=== PATIENT | female | born 1940 | race Hispanic/Latino ===

== ENCOUNTER 2019-06-06 03:42 | Inpatient (IN) | payer MEDICARE, OTHER ==
[2019-06-06] MEDS ORDERED: Dextrose 5 % And 0.9 % NaCl 1,000 ML IV SCH (04:45)
[2019-06-06 04:47] LABS: Actual Bicarbonate (HCO3a) 2.8 mEq/L (22-28); Analyzer IN Cardio ER; Base Excess (BEa) -27.2 mEq/L (-2.0 to +3.0); Calcium, Ionized 1.03 mmol/L (1.12-1.30); Carboxyhemoglobin (COHb) 0.3 gm% (0.0-3.0); Hemoglobin (Hb) 7.7 g/dL (12.0-16.0); O2 Tension (PaO2) 265.4 mmHg (> 70.0)
[2019-06-06 04:52] LABS: CO2 Tension 13.2 mmHg (35.0-45.0); Puncture Site LRA; pH, Arterial 6.95 (7.35-7.45)
[2019-06-06] MEDS ORDERED: Rocuronium Bromide 10 MG/ML (10ML VIAL) ONE (05:03)
--- NOTE | 2019-06-06 05:13 | PDOC.EVN ---
Event Note - Event Note Event Note: [id number]
[2019-06-06] MEDS ORDERED: Ketamine 50 MG/ML (10ML VIAL) ONE (05:28)
[2019-06-06] MEDS ORDERED: Sodium Bicarb 50 MEQ/50 ML VIAL ONE (05:34)
[2019-06-06] MEDS ORDERED: Sodium Bicarbonate 140 MEQ in Dextrose 5% in Water 1,000 ML IV SCH (05:45)
[2019-06-06] MEDS ORDERED: Norepinephrine 4 MG/4 ML VIAL ONE (06:21)
[2019-06-06 07:08] LABS: Mean Corpuscular HGB CONC 30.8 g/dL (32.0-36.0); Mean Corpuscular Hemoglobin 33.2 pg (27.0-31.0); Mean Platelet Volume 6.5 fL (7.4-10.4); Platelet Count 279 thou/uL (130-400); RBC Distribution Width 14.1 % (11.5-14.5); Red Blood Cell (RBC) Count 1.82 mill/uL (4.20-5.40); White Blood Cell (WBC) Count 21.6 thou/uL (4.8-10.8)
--- NOTE | 2019-06-06 07:13 | RAD ---
Chest AP view INDICATION: Emergency examination for chest pain COMPARISON: June 06, 2019 at 5:04 AM FINDINGS: Lungs:Hyperinflated but clear. Left costophrenic angle is excluded. Cardiac silhouette:New left IJ central venous catheter projecting in the region of the cavoatrial shahla ction. Gastric catheter and ET tube are unchanged. Heart size is normal. Pulmonary vasculature:Normal Pleural spaces:No pleural effusion or pneumothorax is demonstrated. Upper abdomen:No abnormality seen. Osseous structures: No acute osseous abnormality. Additional findings:None. IMPRESSION: New left IJ central venous catheter with the tip projecting in the region of the cavoatri al junction. Hyperinflation without evidence of airspace consolidation or pneumothorax. ET tube and gastric catheter unchanged.
--- NOTE | 2019-06-06 07:15 | RAD ---
Chest AP view INDICATION: Status post intubation COMPARISON: June 06, 2019 at 1:41 AM FINDINGS: Lungs:Hyperinflated but clear. Cardiac silhouette:The gastric catheter tip projects in the region of gastroesophageal junction. Michael mmend advancement. Patient is intubated. The ET tube tip is seen 6 cm above the level of brianna. Heart size is normal. Pulmonary vasculature:Normal Pleural spaces:No pleural effusion or pneumothorax is demonstrated. Upper abdomen:No abnormality seen. Osseous structures: There is diffuse osteopenia. No acute fracture or subluxation demonstrated. Additional findings:None. IMPRESSION: Hyperinflation without acute infiltrate. Intubation with gastric catheter placement. The gastric catheter tip is seen at the gastroesophageal junction. Recommend advancement.
[2019-06-06] MEDS ORDERED: Lorazepam 2 MG/ML VIAL SLOW IVP PRN (07:30)
[2019-06-06] MEDS ORDERED: fentaNYL Citrate/PF 2,000 MCG in Sodium Chloride 0.9% 60 ML IV SCH (07:30)
[2019-06-06] MEDS ORDERED: Fentanyl BOLUS 250 ML IVPB PRN (07:30)
[2019-06-06] MEDS ORDERED: Morphine 2 MG/ML SYRINGE SLOW IVP PRN (07:30)
[2019-06-06] MEDS ORDERED: Ventilator Sedation Protocol 1 EACH FS PRN (07:30)
[2019-06-06] MEDS ORDERED: Propofol 1,000 MG/100 ML VIAL IV PRN (07:30)
[2019-06-06] MEDS ORDERED: Propofol BOLUS 1,000 MG/100 ML VIAL IV PRN (07:30)
[2019-06-06] MEDS ORDERED: DISCONTINUE PREVIOUS NARCOTIC PAIN MEDICATIONS AND BENZODIAZEPINES FS SCH (07:30)
--- NOTE | 2019-06-06 07:36 | CT ---
CT OF THE ABDOMEN AND PELVIS WITHOUT IV CONTRAST INDICATION: Fever with renal stones, sepsis and UTI COMPARISON: None FINDINGS: This examination is limited for the evaluation of solid organs and vascular structures due to the lac k of intravenous contrast. ABDOMEN: Lung bases: Clear Liver: No focal lesion. Gallbladder: Distended Pancreas: Normal. Adrenal glands: Normal. Spleen: Normal. Kidneys and ureters: There are multiple small nonobstructing calculi seen within both kidneys. There is a right ureteral stent within the right renal collecting system. Proximal portion of the right ureteral stent resides in the renal pelvis and the distal stent resides within the right posterior la teral bladder. Largest nonobstructing calculus is seen within left renal pelvis measuring 1 cm. There is an additional 7 mm stone within the superior pole left kidney. Largest stone within the righ t kidney is seen within the inferior pole measuring 6 mm. There is gas present within an anterior middle calyx of the right kidney as well as within the right renal pelvis. There is gas along the rig ht ureteral stent within the right ureter. There is a 1 cm stone adjacent to the distal aspect of the right renal stent. There is a 5 mm stone adjacent to the distal right ureteral stent. Vasculature: There are severe vascular calcifications seen involving the visualized vasculature. Lymph nodes:No lymphadenopathy. Free fluid in abdomen:There is mild free fluid in the abdomen and pelvis. PELVIS: Small and large bowel: The stomach is prominently distended with fluid and gas. The small bowel appea rs to be of normal caliber. The colon is largely decompressed. Appendix:Not definitely seen Bladder: There is a Gross catheter within a decompressed bladder. There is suggestion of wall thicken ing involving the bladder. There is intraluminal gas within the bladder. Rectal and perirectal soft tissues:There is suggested wall thickening involving the mid to lower rect um nodule which is likely related to some underdistention. Reproductive structures: Not visible Free fluid in pelvis: Mild free fluid Lymphadenopathy pelvis: No lymphadenopathy is evident. Osseous structures: There is diffuse osteopenia. There is scattered degenerative and osteoarthritic c hange. There are age-indeterminate moderate wedge compression fractures of L3 and L4. There is soft tissue gas overlying the right greater trochanter suspicious for decubitus ulcer. Soft tissues:There is diffuse moderate to prominent anasarca. IMPRESSION: 1. Right-sided ureteral stent projects in the expected position. There are 2 large stones seen within the distal right ureter. There is gas within the right renal collecting system and bladder. Findings may reflect sequela of recent instrumentation. Recommend correlation with patient's surgical history. There is bilateral nephrolithiasis. The bladder is decompressed with a Gross catheter; however, there is some suggestion of bladder wall thickening. A component of cystitis is suspected. 2. Hydropic gallbladder. 3. Prominent distention of the stomach with fluid and gas may reflect a component of gastroparesis. 4. Right greater trochanter decubitus ulcer. 5. Age indeterminate moderate wedge compression fractures of L3 and L4 6. Moderate to prominent anasarca
[2019-06-06 07:37] LABS: ALT (SGPT) Less than 7 U/L (8-55); AST (SGOT) 30 U/L (5-34); Albumin 1.5 g/dL (3.4-4.8); Alkaline Phosphatase 58 U/L (40-110); BUN (Urea Nitrogen) 60 mg/dL (9.8-20.1); Band 22 % (5-11); Bilirubin, Total 0.2 mg/dL (0.2-1.2); Burr Cells MARKED = >16 cells (100X) (0-1/hpf); Calc. Creatinine Clearance 0 mL/min (70-130); Chloride 112 mmol/L (98-107); Estimated GFR-MDRD 23; Globulin 2.1 g/dL (2.4-3.5); Glucose 287 mg/dL (83-110); Hypochromia SLIGHT = 6-15 cells (100X) (0-5/hpf); MDiff Complete? YES; Metamyelocyte 2 % (0-0); Monocytes 2 % (0-10); Neutrophil 74 % (42-75); Platelet Morphology Comment Appears Adequate; Polychromasia SLIGHT = 2-3 cells (100X) (0-2/hpf); Potassium 3.7 mmol/L (3.5-5.1); Protein, Total 3.6 g/dL (6.0-8.3); Reflex for Review?? NO; Schistocytes SLIGHT = 2-5 cells (100X) (0-1/hpf); Sodium 140 mmol/L (136-145)
[2019-06-06 07:54] LABS: Calcium 5.4 mg/dL (7.8-10.44); Carbon Dioxide Less than 8 mmol/L (23-31)
[2019-06-06] MEDS ORDERED: Calcium Gluconate 9.2 MEQ in Sodium Chloride 0.9% 100 ML IVPB SCH (07:56)
[2019-06-06 08:36] LABS: Actual Bicarbonate (HCO3a) 3.5 mEq/L (22-28); Base Excess (BEa) -24.4 mEq/L (-2.0 to +3.0); Calcium, Ionized 0.94 mmol/L (1.12-1.30); Carboxyhemoglobin (COHb) 0.5 gm% (0.0-3.0); Hemoglobin (Hb) 8.6 g/dL (12.0-16.0); O2 Tension (PaO2) 334.3 mmHg (> 70.0); Potassium - ABG Lab 3.96 mmol/L (3.70-5.30)
[2019-06-06 08:41] LABS: CO2 Tension 12.4 mmHg (35.0-45.0); Puncture Site RRA; pH, Arterial 7.07 (7.35-7.45)
[2019-06-06 08:55] LABS: Lactic Acid 15.5 mmol/L (0.5-2.2)
[2019-06-06] MEDS ORDERED: Cefepime 1 GM in Sodium Chloride 0.9% 100 ML IVPB SCH (09:15)
[2019-06-06] MEDS: Cefepime 1 GM in Sodium Chloride 0.9% 100 ML IVPB SCH ×2 (10:05→17:29)
--- NOTE | 2019-06-06 10:06 | CON ---
DATE OF CONSULTATION: 06/06/2019 CONSULTING PHYSICIAN: Lele Starks MD Following encompassed 45 minutes of Critical Care time. HISTORY OF PRESENT ILLNESS: The patient is a 78-year-old female, resident of a group home in [place]. She was found unresponsive in her bed this morning. She was initially taken to the [facility] Emergency Room and then transferred over here. This patient has been intubated. She was hypotensive on admission. She was found to be in an extreme metabolic acidosis. It is thought that she is in urosepsis from a urinary tract infection. The history I have is obtained from speaking with the physicians involved and by reading the notes in the chart. PAST MEDICAL HISTORY: 1. Diabetes mellitus, type 2. 2. Sepsis syndrome. 3. Hyperlipidemia. 4. Protein-calorie malnutrition. 5. Hypertension. 6. Hyperosmolar hyponatremia. 7. Decubitus ulcers. 8. Osteoarthritis. 9. Acute renal failure. 10. Ureteral calculi. 11. Cystitis. 12. Neurogenic bladder. 13. Contractures. PAST SURGICAL HISTORY: Not known at this time. SOCIAL HISTORY: Apparently, used to smoke cigarettes. I am not sure about alcohol consumption. MEDICATIONS: Medications prior to admission: 1. Loperamide 2 mg as needed. 2. MiraLAX 17 g daily as needed. 3. [place] 7.5/325 one every 6 hours as needed. 4. Protonix 40 mg daily. 5. Ropinirole 1 mg, 3 tablets at night. 6. Simvastatin 20 mg daily. 7. Tramadol 50 mg every 6 hours as needed. 8. Zofran as needed. 9. Zyrtec 10 mg daily. 10. Acetaminophen 500 mg as needed. 11. Alendronate 70 mg daily. 12. Aspirin 81 mg daily. 13. Benzonatate 200 mg t.i.d. 14. Escitalopram 10 mg daily. 15. Iron sulfate 325 mg daily. 16. Lisinopril 20 mg daily. ALLERGIES: NONE LISTED. REVIEW OF SYSTEMS: Cannot be obtained as the patient is currently on mechanical ventilation. PHYSICAL EXAMINATION: VITAL SIGNS: Pulse 78, blood pressure 85/47, temperature 92.1, respiratory rate 24, mechanical ventilation. GENERAL: This is a cachectic female, who appears extremely malnourished and unkept. She has bruising all over her body. She has decubitus ulcers at pressure points throughout her body. HEENT: Pupils are sluggishly reactive. Sclerae are anicteric. Oropharynx is dry. NECK: No adenopathy or JVD. LUNGS: Coarse rhonchi bilaterally. CARDIOVASCULAR: S1 and S2. Regular without audible murmur. ABDOMEN: Soft. No hepatosplenomegaly. EXTREMITIES: Severe muscle wasting. Contractures. No cyanosis. Of note, this patient has a Gross catheter placed in the ER. She has a left IJ central line in place, and she has a 7.[address]. LABORATORY DATA: White blood cell count 24.0, hematocrit 27.2, platelet count 335 with 75% neutrophils, 9% bands. A pH is 6.95, pCO2 of 13, pO2 of 265. That blood gas was obtained on 100% nonrebreather. Sodium 140, potassium 5.2, chloride 104, CO2 less than 8, BUN 75, creatinine 2.6, glucose 76. Lactate 15.7. AST 19, ALT less than 7, total protein 4.6, albumin 1.9. Urinalysis showed severe proteinuria with greater than 50 white blood cells per field, 11 to 20 red blood cells per field, and 4+ bacteria. Her chest x-ray demonstrates hyperinflated lung lynn. The endotracheal tube is about 6 cm above the brianna. She has a left IJ coursing into the superior vena cava that is in adequate position. I do not appreciate any type of pneumothorax. ASSESSMENT: 1. Septic shock from urosepsis. 2. Severe metabolic acidosis secondary to septic shock. 3. Severe protein-calorie malnutrition with evidence of neglect. 4. Acute respiratory failure requiring mechanical ventilation. 5. Hypoglycemia. PLAN: This patient is deathly ill and has a very poor chance of survival. We will continue mechanical ventilation and support her with antibiotics, vasopressors, and IV fluids. Depending on the CT abdomen results, she may need Urology involvement as she has had issues with stones in the past. Job ID: [id number]
[2019-06-06] MEDS: Dextrose 5% in Water 1,000 ML IV SCH ×3 (10:07→18:31)
[2019-06-06] MEDS: Pantoprazole 40 MG VIAL IVP SCH (10:08)
[2019-06-06] MEDS: Sodium Chloride 0.9% 1,000 ML IV SCH ×2 (10:08→10:09)
[2019-06-06] MEDS ORDERED: Acetaminophen 650 MG Suppository PR PRN (11:00)
[2019-06-06] MEDS ORDERED: Acetaminophen 325 MG TAB PO PRN (11:00)
[2019-06-06] MEDS ORDERED: Bisacodyl 10 MG SUPP PR PRN (11:00)
[2019-06-06] MEDS ORDERED: Calcium Carbonate 500 MG ChewTAB PO PRN (11:00)
[2019-06-06] MEDS ORDERED: Dextrose 50% Abboject 50 ML SYRINGE SLOW IVP PRN (11:03)
[2019-06-06] MEDS ORDERED: Insulin Regular 300 UNITS/3 ML VIAL SC PRN (11:03)
[2019-06-06] MEDS ORDERED: Dextrose 5% in Water 1,000 ML IV PRN (11:03)
[2019-06-06] MEDS ORDERED: Acetaminophen 650 MG/20.3 ML UDCUP PO PRN (11:03)
[2019-06-06] MEDS ORDERED: SYSTANE 3.5 GM TUBE EA EYE PRN (11:03)
[2019-06-06] MEDS: Insulin Regular 300 UNITS/3 ML VIAL SC PRN ×2 (12:28→16:43)
[2019-06-06] MEDS ORDERED: NPH, Human Insulin Isophane 300 UNIT/3 ML VIAL SC SCH (13:00)
--- NOTE | 2019-06-06 15:24 | PDOC.PALCO ---
Palliative Care Consult - Consult Details Requesting Physician: Dr Altamirano Reason for Consult: goals of care, family support Family Members Present: Grandson of patient, Kannan - Pertinent HPI 78 year female who resides currently at a residential in [place] for management o fchronic wounds. Patient was found to have an altered mental status at aprox midnight 12/ and was transported to [place] emergency room for evaluation, transfered to [facility] for a higher level of care R/t septic chock from a suspected UTI. Family reports known renal calculi. Patient was intubated secondary to altered ABG's. Admitted for medical management. In conversation with patient grandson he and his sister are MPOA as his father is incarcerated. Kannan, grandson, confirms in the past his grandmother states she did not want to "be kept alive on machines". Grandson states she has been bedbounds for a lengthy period of time secondary to S/P CVA, was at home prior to recent need for care at [facility]. - Pertinent PMH DM II, Sepsis, HDL, HTN, chronic wounds/ulcers, neurogenic bladder, S/P CVA, chronic UTI /kidney failure, ureteral calculus, anemia, - Social History Smoking Status: Former smoker Smoking: quit greater than 1 year Alcohol Use: none Drug Use History: none Living Situation: residential resident - Medications MAR Reviewed: Yes - Allergies Allergies/Adverse Reactions: Allergies Allergy/AdvReac Type Severity Reaction Status Date / Time No Known Drug Allergies Allergy Verified 06/06/19 12:41 - Subjective Mechanical ventilation, non responsive - ROS Non Response: due to endotracheal tube, due to mental status - Objective Vital Signs: Vital Signs - Most Recent Temp Pulse Resp BP Pulse Ox 97.9 F 109 H 25 H 96/44 L 100 06/06/19 14:31 06/06/19 14:31 06/06/19 14:31 06/06/19 14:31 06/06/19 14:31 Palliative Performance Scale: 20 - Physical Exam Constitutional: encephalitic, ill appearing HEENT: moist MMs, sclera anicteric Respiratory: labored respirations (mechanical ventilation) Cardiovascular: diminished peripheral pulses Gastrointestinal: incontinent Genitourinary: grant catheter Musculoskeletal: diffuse muscle atrophy Neurology: hemiplegia Skin: cap refill <2 seconds, fragile Deviation from normal: non responsive verbally, mechanical ventilation - Problem List (1) Palliative care encounter Code(s): Z51.5 - ENCOUNTER FOR PALLIATIVE CARE Current Visit: Yes Status: Acute (2) On mechanically assisted ventilation Code(s): Z99.11 - DEPENDENCE ON RESPIRATOR [VENTILATOR] STATUS Current Visit: Yes Status: Acute (3) Septic shock Code(s): A41.9 - SEPSIS, UNSPECIFIED ORGANISM; R65.21 - SEVERE SEPSIS WITH SEPTIC SHOCK Current Visit: Yes Status: Acute (4) Protein-calorie malnutrition Code(s): E46 - UNSPECIFIED PROTEIN-CALORIE MALNUTRITION Current Visit: Yes Status: Acute (5) Metabolic acidosis Code(s): E87.2 - ACIDOSIS Current Visit: Yes Status: Acute - Plan/Recommendations Plan: Initial Palliative Care consult with patient grandson, states his sister is also decision maker and she has gone home to rest. Grandson "Kannan" states that is is he and his sister who care for his grandmother as his father ( patient son) is incarcerated. Discussed gravity of patient illness and poor prognosis. *Attempting to arrange a family meeting for 06/07 to discuss goals of care and resuscitation status. *Continue with theraputic listening and supportive care *Education in relation to disease progression and complexity of chronic conditions [60] minutes spent on this encounter with >50% of the time in counseling and coordination of care. Thank you for this very appropriate consult.
[2019-06-06] MEDS: Norepinephrine 8 MG/0.9% NS 250 ML IVPB SCH ×2 (18:11→23:54)
[2019-06-06] MEDS: NPH, Human Insulin Isophane 300 UNIT/3 ML VIAL SC SCH (20:49)
[2019-06-06] MEDS ORDERED: Heparin 5,000 UNITS/ML VIAL SC SCH (21:00)
[2019-06-06] MEDS: Amiodarone 450 MG, Admixture Fee 1 EACH in Dextrose 5% in Water 250 ML IVPB SCH (21:19)
[2019-06-07] MEDS ORDERED: Vancomycin HCl 1 GM in Sodium Chloride 0.9% 250 ML 250 ML IVPB SCH (03:00)
[2019-06-07] MEDS: Dextrose 5% in Water 1,000 ML IV SCH (04:30)
[2019-06-07] MEDS: Amiodarone 450 MG, Admixture Fee 1 EACH in Dextrose 5% in Water 250 ML IVPB SCH ×2 (04:30→23:55)
[2019-06-07 05:27] LABS: Reticulocyte Count 1.3 % (0.5-1.5)
[2019-06-07 05:31] LABS: Band 46 % (5-11); Hemoglobin 9.7 g/dL (12.0-16.0); MDiff Complete? YES; Mean Corpuscular HGB CONC 32.7 g/dL (32.0-36.0); Mean Corpuscular Hemoglobin 33.4 pg (27.0-31.0); Mean Platelet Volume 7.2 fL (7.4-10.4); Metamyelocyte 2 % (0-0); Neutrophil 52 % (42-75); Platelet Count 205 thou/uL (130-400); Platelet Morphology Comment Appears Adequate; RBC Distribution Width 14.3 % (11.5-14.5); Red Blood Cell (RBC) Count 2.92 mill/uL (4.20-5.40); White Blood Cell (WBC) Count 31.3 thou/uL (4.8-10.8)
[2019-06-07] MEDS: Cefepime 1 GM in Sodium Chloride 0.9% 100 ML IVPB SCH (06:03)
[2019-06-07 06:12] LABS: ALT (SGPT) 19 U/L (8-55); AST (SGOT) 96 U/L (5-34); Albumin 1.8 g/dL (3.4-4.8); Alkaline Phosphatase 52 U/L (40-110); BUN (Urea Nitrogen) 61 mg/dL (9.8-20.1); Bilirubin, Total 0.3 mg/dL (0.2-1.2); Calc. Creatinine Clearance 14 mL/min (70-130); Chloride 100 mmol/L (98-107); Estimated GFR-MDRD 20; Globulin 2.6 g/dL (2.4-3.5); Glucose 103 mg/dL (83-110); Phosphorus 3.7 mg/dL (2.3-4.7); Potassium 3.1 mmol/L (3.5-5.1); Protein, Total 4.4 g/dL (6.0-8.3); Sodium 127 mmol/L (136-145)
[2019-06-07 06:15] LABS: Carbon Dioxide Less than 8 mmol/L (23-31); Lactic Acid 13.4 mmol/L (0.5-2.2); Magnesium 0.7 mg/dL (1.6-2.6)
[2019-06-07] MEDS: Vancomycin HCl 750 MG in Sodium Chloride 0.9% 250 ML 250 ML IVPB SCH (06:46)
[2019-06-07 07:01] LABS: Actual Bicarbonate (HCO3a) 4.6 mEq/L (22-28); Base Excess (BEa) -21.9 mEq/L (-2.0 to +3.0); Calcium, Ionized 0.94 mmol/L (1.12-1.30); Carboxyhemoglobin (COHb) 0.2 gm% (0.0-3.0); Hemoglobin (Hb) 10.6 g/dL (12.0-16.0); O2 Tension (PaO2) 279.4 mmHg (> 70.0); Potassium - ABG Lab 3.18 mmol/L (3.70-5.30)
[2019-06-07 07:03] LABS: CO2 Tension 13.4 mmHg (35.0-45.0); pH, Arterial 7.16 (7.35-7.45)
[2019-06-07 07:04] LABS: Puncture Site RRA
[2019-06-07] MEDS ORDERED: Potassium Chloride 40 MEQ in Sodium Chloride 0.9% 250 ML 250 ML IVPB SCH (07:30)
[2019-06-07] MEDS: Sodium Bicarb 50 MEQ/50 ML VIAL ONE (08:08)
--- NOTE | 2019-06-07 08:09 | HP ---
CHIEF COMPLAINT: Unresponsiveness. HISTORY OF PRESENT ILLNESS: Ms. Arteaga is a 78-year-old female who is being transferred from [place] [facility] after she presented there with unresponsiveness. EMG got a blood glucose of less than 10. She was given 250 mL of D10 and her glucose on arrival was 116. Systolic blood pressure was around 90. The patient also was found to be hypothermic with temperature in the mid 80s. On initial workup in the emergency room, the patient was septic with WBC count of 24,000. The patient was found to have urinary tract infection. Multiple decubitus ulcers, one of them is stage IV. The patient was transferred to our emergency room on non-rebreather. We were unable to get an oxygen saturation. Arterial blood gases being drawn right now, results are still pending at the time of this dictation. The patient is unable to give any history. Current blood pressure is 100/50. Septic workup done including blood cultures and urine cultures. The patient is being admitted to the intensive care unit for further management. PAST MEDICAL HISTORY: Significant for diabetes mellitus type 2, hyperlipidemia, malnutrition, hypertension, hyponatremia, pressure ulcers, osteoarthritis, osteoporosis, kidney failure, neurogenic bladder, chronic UTIs, contractures, and atrophy. PAST SURGICAL HISTORY: Renal stent. SOCIAL HISTORY: Former tobacco user. Currently lives in [place] [facility] [place]. FAMILY HISTORY: Reviewed and noncontributory. KNOWN ALLERGIES: Bactrim. HOME MEDICATIONS: Please see home medication reconciliation form for updated medications. REVIEW OF SYSTEMS: Unable to obtain. The patient is not responding. PHYSICAL EXAMINATION: GENERAL: The patient is unresponsive, on non-rebreather. VITAL SIGNS: Blood pressure 110/58, pulse is 86, respiratory rate is 23, latest temperature is 92.3. HEAD AND NECK: Normocephalic, atraumatic. Neck is supple. CHEST: Fair bilateral air entry. HEART: S1, S2. Regular. ABDOMEN: Soft. Bowel sounds hypoactive. NEURO: Patient is unresponsive. Unable to assess. PSYCH: Unable to assess. EXTREMITIES AND BACK: Multiple pressure decubitus ulcers, one of them is stage IV with surrounding erythema. LABORATORY DATA: WBC 24,000, hemoglobin 27.4, platelets 335. Sodium is 140, potassium 5.2, BUN is 75, creatinine is 7.6, glucose 76. ASSESSMENT AND PLAN: 1. Acute metabolic encephalopathy. 2. Severe sepsis/septic shock. 3. Acute urinary tract infection. 4. Metabolic acidosis. 5. Hypoglycemia. 6. Diabetes mellitus. 7. Multiple pressure ulcers. 8. Malnutrition, severe. 9. Hyperlipidemia. 10. Anemia of chronic disease. PLAN: 1. Admit to ICU. 2. Septic workup including blood cultures and urine cultures. 3. Continue with IV antibiotics with cefepime and vancomycin. 4. IV fluids. 5. ABG has been drawn, to follow the results. 6. Consult extractor operator helper for critical care management. 7. Reconcile home medications. 8. GI and DVT prophylaxis as appropriate. 9. The patient's condition is very critical. 10. Expected length of stay; 3 midnights or more. Job ID: [id number]
[2019-06-07] MEDS: Norepinephrine 8 MG/0.9% NS 250 ML IVPB SCH ×4 (08:10→22:01)
--- NOTE | 2019-06-07 08:10 | RAD ---
PORTABLE CHEST 1 VIEW: Date: 06/07/19 Time: 0411 hours HISTORY: Pneumonia. Chest pain. FINDINGS/IMPRESSION: Line and tube placements are unchanged in position. The heart size is normal. The lungs are expanded without lobar consolidation, pneumothoraces, or pleural effusions. There are degenerative changes in the right shoulder joint. POS: H
[2019-06-07] MEDS: Sodium Bicarbonate 140 MEQ in Dextrose 5% in Water 1,000 ML IV SCH ×2 (08:36→15:43)
[2019-06-07] MEDS: Pantoprazole 40 MG VIAL IVP SCH (08:37)
[2019-06-07] MEDS: NPH, Human Insulin Isophane 300 UNIT/3 ML VIAL SC SCH ×2 (08:37→21:18)
[2019-06-07] MEDS: Folic Acid 1 MG TAB PER TUBE SCH ×2 (08:42→21:18)
--- NOTE | 2019-06-07 08:51 | CON ---
DATE OF CONSULTATION: 06/07/2019 35 minutes of critical time. SUBJECTIVE: The patient remains intubated on mechanical ventilation. Neurologically, she will grimace to deep painful stimuli and she does withdraw her extremities some to stimuli. Regardless, she remains unresponsive to commands. She is on vasopressors and amiodarone drip. OBJECTIVE: VITAL SIGNS: Her temperature is 99.1, pulse 130, blood pressure 103/44, ranging down to 83/48. Intake since admission 6498 mL, output 316, total urine output has been about 66 mL. She overall looks in terrible shape. HEENT: Unchanged. NECK: No adenopathy or JVD. LUNGS: Coarse breath sounds. CARDIOVASCULAR: S1, S2. Tachycardic and irregular. ABDOMEN: Quiet bowel sounds. EXTREMITIES: Severe contractures. She has edema of her feet. LABORATORY DATA: White blood cell count is 31.3, hematocrit 29.8, and platelet count 205. PH of 7.16, pCO2 of 13, PO2 of 279, that is on pressure support ventilation. of 5, pressure support 10 (the patient becomes dyssynchronous with the ventilator when placed on assist-control mode). Sodium 127, potassium 3.1, chloride 100, CO2 less than 8, BUN 61, creatinine 2.3, and glucose 103. Lactate 13.4, magnesium 0.7. ASSESSMENT: 1. Acute respiratory failure requiring mechanical ventilation. 2. Probable atrial fibrillation. 3. Severe lactic acidosis, not responding to fluid resuscitation. Suspect she may have infarcted her entire bowel given this level of acidosis. PLAN: The situation is hopeless. She will not get better despite aggressive care. I would advocate DNR, withdrawal of care to hospice situation. We will discuss. Job ID: [id number]
[2019-06-07] MEDS ORDERED: Magnesium 2 GM/50 ML 2 GM in Premix Bag 1 BAG IVPB SCH (11:00)
--- NOTE | 2019-06-07 13:13 | PDOC.PALPN ---
Palliative Progress Note - Subjective Mechanical ventilation, non responsive. - Objective Vital Signs: Vital Signs - Most Recent Temp Pulse Resp BP Pulse Ox 98.4 F 136 H 23 H 104/84 100 06/07/19 12:00 06/07/19 13:10 06/07/19 12:00 06/07/19 10:56 06/07/19 07:36 - Physical Exam Constitutional: encephalitic, ill appearing HEENT: moist MMs Deviation from normal: mechanoical ventialtion, sight adventicious lung sounds on expiration upper Cardiovascular: diminished peripheral pulses, irregular Gastrointestinal: incontinent Genitourinary: grant catheter Musculoskeletal: edema present Deviation from normal: cyanotic appearance to toes Skin: fragile, friable Deviation from normal: Multiple wounds as per notes - Assessment (1) Palliative care encounter Code(s): Z51.5 - ENCOUNTER FOR PALLIATIVE CARE Current Visit: Yes Status: Acute (2) On mechanically assisted ventilation Code(s): Z99.11 - DEPENDENCE ON RESPIRATOR [VENTILATOR] STATUS Current Visit: Yes Status: Acute (3) Septic shock Code(s): A41.9 - SEPSIS, UNSPECIFIED ORGANISM; R65.21 - SEVERE SEPSIS WITH SEPTIC SHOCK Current Visit: Yes Status: Acute (4) Protein-calorie malnutrition Code(s): E46 - UNSPECIFIED PROTEIN-CALORIE MALNUTRITION Current Visit: Yes Status: Acute (5) Metabolic acidosis Code(s): E87.2 - ACIDOSIS Current Visit: Yes Status: Acute - Plan Plan: Conversation with Candy patient granddaughter. Patient is , her is home and does not answer or talk on the phone. Mr Arteaga is ill as he has throat cancer and receives nutrition via PEG. Grandson Kannan is on his way to have the grandfather give consent for Candy to be the decision maker (She as been designated in the past). Discussed with Candy patient decline today. Discussed resuscitation status and poor outcome should resuscitative measures need to be carried forth again. Family in shock, but do not want their grandmother to suffer. Will also reach out to Father Brain for spiritual support. *Kannan (grandson) to go to of Mrs Arteaga and have him call and give verbal consent for Candy to be the decision maker for care for Mrs Arteaga. *Revisit DNAR status *Revisit goals of care as family does not desire to have patient suffer. [45] minutes spent on this encounter with >50% of the time in counseling and coordination of care. - ROS Non Response: due to endotracheal tube, due to mental status
--- NOTE | 2019-06-07 23:39 | PDOC.HOSPP ---
- Subjective Encounter Date: 06/07/19 Encounter Time: 09:30 Subjective: Patient seen and examined for Septic shock. On [facility] Vent/Levophed. No overnight events - Objective Vital Signs & Weight: Vital Signs (12 hours) Temp Pulse Resp BP Pulse Ox 06/07/19 23:31 138 H 93/55 L 06/07/19 23:30 100 06/07/19 22:00 30 H 06/07/19 20:00 30 H 100 06/07/19 19:00 98.8 F 06/07/19 18:38 135 H 06/07/19 18:37 100 06/07/19 18:00 24 H 06/07/19 16:00 98.1 F 23 H 06/07/19 15:00 135 H 129/64 06/07/19 14:00 22 H 06/07/19 13:10 136 H 06/07/19 12:00 98.4 F 23 H Weight Admit Weight 107 lb Weight 107 lb 5.842 oz Most Recent Monitor Data Heart Rate from ECG 143 NIBP 115/44 NIBP BP-Mean 67 Respiration from ECG 28 SpO2 100 I&O: 06/06/19 06/07/19 06/08/19 06:59 06:59 06:59 Intake Total 6498 2991 Output Total 316 43 Balance 6182 2948 Result Diagrams: 06/07/19 05:00 06/07/19 05:00 Additional Labs: Accuchecks 06/07/19 06/07/19 06/07/19 20:54 16:03 12:10 POC Glucose 66 L 116 H 81 06/07/19 00:20 POC Glucose 95 Microbiology 06/06/19 01:38 Urine grant catheter Urine Culture - Preliminary Pseudomonas aeruginosa Gram Negative Evan#2 06/06/19 01:35 Venous blood - Right Arm Blood Culture - Preliminary Beta-hemolytic Streptococcus 06/06/19 01:20 Venous blood - Right Arm Blood Culture - Preliminary Beta-hemolytic Streptococcus Radiology Reviewed by me: Yes (CXR - unchanged) EKG Reviewed by me: Yes (Tele ) Hospitalist ROS - Review of Systems ROS unobtainable: due to mental status - Medication Medications: Active Medications Generic Name Dose Route Start Last Admin Trade Name Freq PRN Reason Stop Dose Admin Albuterol/Ipratropium 3 ml 06/06/19 10:30 06/07/19 23:30 Duoneb NEB 3 ml [id number] NATHANIEL Administration Folic Acid 1 mg 06/07/19 09:00 06/07/19 21:18 Folvite PER TUBE 1 mg BID NATHANIEL Administration Norepinephrine Bitartrate 250 mls @ 0 mls/hr 06/06/19 07:30 06/07/19 22:01 Levophed IVPB 250 mls INF NATHANIEL Administration Protocol Titrate Amiodarone HCl 450 mg/ 259 mls @ 0 mls/hr 06/06/19 20:45 06/07/19 04:30 Miscellaneous Medication 1 IVPB 259 mls each/ Dextrose/Water INF NATHANIEL Administration Protocol As Directed Vancomycin HCl 750 mg/ Sodium 250 mls @ 250 mls/hr 06/07/19 06:00 06/07/19 06 :46 Chloride IVPB 250 mls 0600 NATHANIEL Administration Sodium Bicarbonate 140 meq/ 1,140 mls @ 150 mls/hr 06/07/19 08:00 06/07/19 15 :43 Dextrose/Water IV 1,140 mls .[id number] NATHANIEL Administration Insulin Human NPH 15 unit 06/06/19 21:00 06/07/19 21:18 Humulin N SC Not Given BID NATHANIEL Insulin Human Regular 0 units 06/06/19 11:03 06/06/19 16:43 Humulin R SC 4 unit .MODERATE SLIDING SC PRN Administration Moderate Correctional Scale Morphine Sulfate 2 mg 06/06/19 07:30 06/06/19 13:45 Morphine SLOW IVP 07/06/19 07:30 2 mg Q1H PRN Administration BREAKTHROUGH PAIN/Agitation Pantoprazole Sodium 40 mg 06/06/19 09:00 06/07/19 08:37 Protonix IVP 40 mg DAILY NATHANIEL Administration - Exam General Appearance: NAD General - other findings: on Levophed Heart: RRR, no gallops Respiratory: CTAB, normal chest expansion, rales, rhonchi Gastrointestinal: soft, non-tender, non-distended, normal bowel sounds Extremities: no cyanosis, no clubbing Musculoskeletal - other findings: Neuro/Psych - cannot assess due to current mentation Hosp A/P - Plan DVT proph w/SCDs Severe Sepsis/Septic shock with Strep bacteremia/UTI (POA) Toxic Metabolic Encephalopathy Lactic acidosis Decubitus ulcer (POA) Anemia DM2 Severe PEM Other issues per H&P PLAN: s/p 1 unit PRBC on 06/06 Cont Empiric Atbx Monitor Vancomycin level Await sensitivities AM labs Sliding scale On Bicarb drip
[2019-06-08] MEDS: Sodium Bicarbonate 140 MEQ in Dextrose 5% in Water 1,000 ML IV SCH ×3 (00:28→15:33)
[2019-06-08] MEDS: Norepinephrine 8 MG/0.9% NS 250 ML IVPB SCH ×2 (03:48→15:33)
[2019-06-08 04:08] LABS: Lactic Acid 11.7 mmol/L (0.5-2.2)
[2019-06-08 04:11] LABS: ALT (SGPT) 28 U/L (8-55); AST (SGOT) 103 U/L (5-34); Albumin 1.5 g/dL (3.4-4.8); Alkaline Phosphatase 59 U/L (40-110); Anion Gap 25 mmol/L (10-20); BUN (Urea Nitrogen) 57 mg/dL (9.8-20.1); Bilirubin, Total 0.3 mg/dL (0.2-1.2); Calc. Creatinine Clearance 16 mL/min (70-130); Carbon Dioxide 14 mmol/L (23-31); Chloride 96 mmol/L (98-107); Estimated GFR-MDRD 22; Globulin 2.2 g/dL (2.4-3.5); Magnesium 1.3 mg/dL (1.6-2.6); Phosphorus 2.6 mg/dL (2.3-4.7); Potassium 3.6 mmol/L (3.5-5.1); Protein, Total 3.7 g/dL (6.0-8.3); Sodium 131 mmol/L (136-145)
[2019-06-08 04:13] LABS: Calcium 5.5 mg/dL (7.8-10.44); Glucose 11 mg/dL (83-110)
[2019-06-08] MEDS ORDERED: Dextrose 50 % In Water 50 ML SYRINGE ONE ×4 (04:14→12:42)
[2019-06-08 04:17] LABS: Band 43 % (5-11); Elliptocytes SLIGHT = 2-5 cells (100X) (0-1/hpf); Hemoglobin 9.3 g/dL (12.0-16.0); Hypochromia SLIGHT = 6-15 cells (100X) (0-5/hpf); Lymphocytes 2 % (21-51); MDiff Complete? YES; Mean Corpuscular HGB CONC 34.1 g/dL (32.0-36.0); Mean Corpuscular Hemoglobin 33.1 pg (27.0-31.0); Mean Corpuscular Volume 97.1 fL (78.0-98.0); Mean Platelet Volume 7.9 fL (7.4-10.4); Metamyelocyte 2 % (0-0); Monocytes 3 % (0-10); Myelocyte 2 % (0-0); Neutrophil 48 % (42-75); Platelet Count 123 thou/uL (130-400); Platelet Morphology Comment Appears Decreased; RBC Distribution Width 14.2 % (11.5-14.5); Red Blood Cell (RBC) Count 2.83 mill/uL (4.20-5.40); White Blood Cell (WBC) Count 33.4 thou/uL (4.8-10.8)
[2019-06-08] MEDS: Cefepime 0.5 GM, Admixture Fee 1 EACH in Sodium Chloride 0.9% 100 ML IVPB SCH (05:45)
[2019-06-08 05:56] LABS: Vancomycin, Trough 16.1 ug/mL
[2019-06-08] MEDS: Vancomycin HCl 750 MG in Sodium Chloride 0.9% 250 ML 250 ML IVPB SCH (06:33)
[2019-06-08 07:13] LABS: Actual Bicarbonate (HCO3a) 10.6 mEq/L (22-28); Base Excess (BEa) -12.6 mEq/L (-2.0 to +3.0); Calcium, Ionized 0.85 mmol/L (1.12-1.30); Carboxyhemoglobin (COHb) 0.2 gm% (0.0-3.0); Hemoglobin (Hb) 9.6 g/dL (12.0-16.0); O2 Tension (PaO2) 90.4 mmHg (> 70.0); Potassium - ABG Lab 3.29 mmol/L (3.70-5.30); pH, Arterial 7.39 (7.35-7.45)
[2019-06-08 07:18] LABS: Puncture Site RRA
[2019-06-08] MEDS: NPH, Human Insulin Isophane 300 UNIT/3 ML VIAL SC SCH ×2 (07:33→20:06)
[2019-06-08] MEDS: Pantoprazole 40 MG VIAL IVP SCH (07:33)
[2019-06-08] MEDS: Folic Acid 1 MG TAB PER TUBE SCH ×2 (07:33→20:05)
--- NOTE | 2019-06-08 08:26 | RAD ---
Exam: Chest one view: HISTORY: Follow-up pneumonia COMPARISON: 06/07/2019 Monitor leads overlie the chest. NG tube and endotracheal tube and left central lines remain in place . Marked rotation to the right. No significant acute intrathoracic disease. IMPRESSION: Overall stable chest given significant rotation to the right.
--- NOTE | 2019-06-08 09:30 | PRG ---
DATE OF SERVICE: 06/08/2019 SUBJECTIVE: The patient is seen and examined at the bedside. She does not respond to our even painful stimuli. OBJECTIVE: VITAL SIGNS: Blood pressure is 139/64, pulse is 121, respirations 17, O2 saturations are 100. She is intubated and FiO2 is 40%. HEENT: Her pupils are small, not much reactive to light. LUNGS: Breath sounds diminished at both bases. HEART: S1 and S2, normal. ABDOMEN: Soft, nondistended. EXTREMITIES: No clubbing, cyanosis, or edema. NEUROLOGICAL: She is not sedated, but she does not respond even to painful stimuli. 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 LABORATORY DATA: Labs showed a white count of 33.4, hemoglobin of 9.3, hematocrit 27.4, and platelet count is 123,000. ABGs showed pH of 7.39, pCO2 of 18, pO2 of 90.4, and base excess -12.6. Sodium is 131, potassium 3.6, chloride 96, CO2 of 14, creatinine is 2.14, BUN is 57, glucose is ranging from . Lactic acid is down to 5.5, magnesium 1.3. AST 103, vancomycin 16.1, albumin 1.5, serum total protein 3.7. Chest x-ray from this morning showed no any new findings. IMPRESSION: 1. Severe sepsis with septic shock with strep bacteremia. 2. Toxic metabolic encephalopathy. 3. Profound lactic acidosis. 4. Decubitus ulcer. 5. Anemia. 6. Diabetes mellitus, type 2. 7. Severe protein-energy malnutrition. 8. Hypophosphatemia. PLAN: We will continue current regimen, but most likely, the family will make decision about withdrawing since she is in such a profound illness without any response. Job ID: [id number]
[2019-06-08] MEDS: WATER IV SCH (18:14)
[2019-06-08] MEDS: DEXTROSE 10% IV SCH (18:14)
[2019-06-08] MEDS: SODIUM BICARBONATE IV SCH (18:14)
[2019-06-09] MEDS: DEXTROSE 10% IV SCH ×3 (03:05→19:25)
[2019-06-09] MEDS: SODIUM BICARBONATE IV SCH ×3 (03:05→19:25)
[2019-06-09] MEDS: WATER IV SCH ×3 (03:05→19:25)
[2019-06-09 04:50] LABS: Phosphorus 2.7 mg/dL (2.3-4.7)
[2019-06-09 05:03] LABS: ALT (SGPT) 24 U/L (8-55); AST (SGOT) 63 U/L (5-34); Albumin 1.4 g/dL (3.4-4.8); Alkaline Phosphatase 93 U/L (40-110); Anion Gap 30 mmol/L (10-20); BUN (Urea Nitrogen) 55 mg/dL (9.8-20.1); Bilirubin, Total 0.4 mg/dL (0.2-1.2); Calc. Creatinine Clearance 18 mL/min (70-130); Carbon Dioxide 12 mmol/L (23-31); Chloride 88 mmol/L (98-107); Estimated GFR-MDRD 21; Globulin 1.9 g/dL (2.4-3.5); Glucose 191 mg/dL (83-110); Magnesium 1.2 mg/dL (1.6-2.6); Potassium 3.3 mmol/L (3.5-5.1); Protein, Total 3.3 g/dL (6.0-8.3); Sodium 127 mmol/L (136-145)
[2019-06-09 05:10] LABS: Band 25 % (5-11); Crenated RBC SLIGHT = 1-5 cells (100X) (None Seen); Elliptocytes SLIGHT = 2-5 cells (100X) (0-1/hpf); Hemoglobin 7.7 g/dL (12.0-16.0); Lymphocytes 1 % (21-51); MDiff Complete? YES; Mean Corpuscular HGB CONC 34.2 g/dL (32.0-36.0); Mean Corpuscular Hemoglobin 33.4 pg (27.0-31.0); Mean Corpuscular Volume 97.6 fL (78.0-98.0); Mean Platelet Volume 9.3 fL (7.4-10.4); Metamyelocyte 3 % (0-0); Neutrophil 71 % (42-75); Platelet Count 75 thou/uL (130-400); Platelet Morphology Comment Appears Decreased; RBC Distribution Width 14.2 % (11.5-14.5); Red Blood Cell (RBC) Count 2.31 mill/uL (4.20-5.40); White Blood Cell (WBC) Count 28.6 thou/uL (4.8-10.8)
[2019-06-09 05:13] LABS: Calcium 5.2 mg/dL (7.8-10.44)
[2019-06-09] MEDS: Amiodarone 450 MG, Admixture Fee 1 EACH in Dextrose 5% in Water 250 ML IVPB SCH ×2 (05:26→14:47)
[2019-06-09] MEDS: Vancomycin HCl 750 MG in Sodium Chloride 0.9% 250 ML 250 ML IVPB SCH (05:45)
[2019-06-09] MEDS ORDERED: Calcium Gluconate 4.6 MEQ in Sodium Chloride 0.9% 100 ML IVPB SCH ×2 (06:15→12:45)
[2019-06-09] MEDS: Cefepime 0.5 GM, Admixture Fee 1 EACH in Sodium Chloride 0.9% 100 ML IVPB SCH (06:56)
[2019-06-09] MEDS: Folic Acid 1 MG TAB PER TUBE SCH ×2 (07:29→19:25)
[2019-06-09] MEDS: Pantoprazole 40 MG VIAL IVP SCH (07:29)
[2019-06-09] MEDS: NPH, Human Insulin Isophane 300 UNIT/3 ML VIAL SC SCH ×2 (07:29→19:26)
[2019-06-09] MEDS: Insulin Regular 300 UNITS/3 ML VIAL SC PRN (08:19)
[2019-06-09] MEDS ORDERED: SODIUM BICARBONATE IV SCH (09:30)
[2019-06-09] MEDS ORDERED: DEXTROSE IV SCH (09:30)
[2019-06-09] MEDS ORDERED: NACL IV SCH (09:30)
--- NOTE | 2019-06-09 10:59 | RAD ---
CHEST 1 VIEW: HISTORY: Followup pneumonia. COMPARISON: 06/08/2019. FINDINGS: Life support tubes remain in place and stable. Patchy perihilar and lower lobe opacity changes have worsened when compared to the prior study raising the possibility of some developing pneumonia or pne umonitis or asymmetric edema. Heart size remains normal. IMPRESSION: Some progressive infrahilar and bibasilar parenchymal changes from prior study. Continue short-term followup. POS: REBECCA
--- NOTE | 2019-06-09 12:47 | PRG ---
DATE OF SERVICE: 06/09/2019 SUBJECTIVE: The patient is seen and examined at the bedside. She is in is CCU-2 and there was no any unexpected events overnight. The patient is still hypotensive, very septic, acidotic, requiring Levophed, which is a vasopressor to maintain her blood pressure systolic around 100. OBJECTIVE: VITAL SIGNS: Blood pressure is 110/49, pulse is 98, respiratory rate is 19, O2 saturation is 100. She is not sedated. She does not respond to any stimuli, even painful stimuli. LUNGS: Breath sounds diminished at both bases. HEART: S1, S2 normal. No S3. No S4. Irregularly irregular. ABDOMEN: Soft, nondistended, although she starts grimacing when I push on abdomen deeper. EXTREMITIES: No clubbing, cyanosis, or edema. NEUROLOGICAL: She does not have any significant response, maybe slightly painful stimuli. She is not able to move her extremities spontaneously. LABORATORY AND DIAGNOSTIC DATA: White count of 28.6, hemoglobin 7.7, hematocrit 22.5, platelet count is 75,000. Sodium of 127, potassium 3.3, chloride is 88, CO2 of 12, BUN 55, creatinine 2.25. Glycemia is ranging from 79 to 210. Calcium 5.4. Microbiology, nothing. Chest x-ray showed patchy perihilar and lower lobe opacity, which showed worsening from the previous study, most likely pneumonia. IMPRESSION: 1. Very severe sepsis with hypotension requiring vasopressors. 2. Severe metabolic acidosis secondary to #1. 3. Toxic metabolic encephalopathy secondary to #1 and #2. 4. Anemia. 5. Diabetes mellitus type 2. 6. Severe protein energy malnutrition. 7. Dyselectrolytemia. PLAN: Despite of all our efforts in spite of a bicarb drip, her acidosis is getting worse. Her pneumonia showing some worsening on the current chest x-ray in spite of broad-spectrum antibiotic and pulmonary support. We will meet with the family and we recommend to withdraw the care since it looks like that chance to survival is very small. Job ID: [id number]
[2019-06-09] MEDS: Norepinephrine 8 MG/0.9% NS 250 ML IVPB SCH (14:48)
[2019-06-09] MEDS: Calcium Carbonate 500 MG TAB PER TUBE SCH ×2 (14:58→21:20)
[2019-06-09] MEDS ORDERED: Dextrose 50 % In Water 50 ML SYRINGE ONE (17:20)
[2019-06-10 05:17] LABS: Phosphorus 2.5 mg/dL (2.3-4.7)
[2019-06-10 05:19] LABS: ALT (SGPT) 27 U/L (8-55); AST (SGOT) 51 U/L (5-34); Albumin 1.3 g/dL (3.4-4.8); Alkaline Phosphatase 89 U/L (40-110); Anion Gap 31 mmol/L (10-20); BUN (Urea Nitrogen) 53 mg/dL (9.8-20.1); Bilirubin, Total 0.4 mg/dL (0.2-1.2); Calc. Creatinine Clearance 20 mL/min (70-130); Carbon Dioxide 15 mmol/L (23-31); Chloride 87 mmol/L (98-107); Estimated GFR-MDRD 23; Globulin 1.9 g/dL (2.4-3.5); Glucose 110 mg/dL (83-110); Magnesium 1.1 mg/dL (1.6-2.6); Potassium 3.1 mmol/L (3.5-5.1); Protein, Total 3.2 g/dL (6.0-8.3); Sodium 130 mmol/L (136-145)
[2019-06-10 05:23] LABS: Calcium 5.4 mg/dL (7.8-10.44)
[2019-06-10 05:31] LABS: Vancomycin, Trough 22.7 ug/mL
[2019-06-10] MEDS: Calcium Carbonate 500 MG TAB PER TUBE SCH ×3 (05:31→20:24)
[2019-06-10] MEDS: WATER IV SCH (05:31)
[2019-06-10] MEDS: SODIUM BICARBONATE IV SCH (05:31)
[2019-06-10] MEDS: DEXTROSE 10% IV SCH (05:31)
[2019-06-10 05:32] LABS: Band 6 % (5-11); Hemoglobin 7.6 g/dL (12.0-16.0); Hypochromia SLIGHT = 6-15 cells (100X) (0-5/hpf); Lymphocytes 3 % (21-51); MDiff Complete? YES; Mean Corpuscular HGB CONC 34.5 g/dL (32.0-36.0); Mean Corpuscular Hemoglobin 33.9 pg (27.0-31.0); Mean Corpuscular Volume 98.2 fL (78.0-98.0); Mean Platelet Volume 10.8 fL (7.4-10.4); Neutrophil 91 % (42-75); Platelet Count 47 thou/uL (130-400); Platelet Morphology Comment Appears Decreased; RBC Distribution Width 14.1 % (11.5-14.5); Red Blood Cell (RBC) Count 2.24 mill/uL (4.20-5.40); White Blood Cell (WBC) Count 15.5 thou/uL (4.8-10.8)
[2019-06-10] MEDS: Cefepime 0.5 GM, Admixture Fee 1 EACH in Sodium Chloride 0.9% 100 ML IVPB SCH (05:49)
[2019-06-10] MEDS ORDERED: Vancomycin HCl 500 MG in Sodium Chloride 0.9% 100 ML IVPB SCH (06:00)
--- NOTE | 2019-06-10 08:28 | PRG ---
DATE OF SERVICE: 06/08/2019 SUBJECTIVE: A 78-year-old female, remains unresponsive in the ICU, intubated. X-ray presently shows no acute infiltrates. She is DNR at this stage. OBJECTIVE: VITAL SIGNS: Blood pressure 99/50, pulse 120, saturations 100%, maximum temperature is 99, and respiratory rate 20. CHEST: Decreased breath sounds. No wheezing. CARDIAC: Normal S1, S2. No gallops. ABDOMEN: Soft. LABORATORY DATA: White count 33,000, hemoglobin and hematocrit 9 and 27, platelet count 123. Creatinine is 2.1, BUN is 57, sodium 131, glucose 130, calcium 5.5. ASSESSMENT: 1. Respiratory failure. 2. Profound acidosis, probably ischemic bowel. PLAN: She is a DNR. Continue vent support, antibiotics. Await input from family. Overall prognosis is grave. One half hour of critical care time. Job ID: [id number]
--- NOTE | 2019-06-10 08:32 | PRG ---
DATE OF SERVICE: 06/09/2019 SUBJECTIVE: She remains in the ICU. She is on a bicarb drip. She is on amiodarone drip, she is on Levophed drip. She barely opens his eyes. OBJECTIVE: VITAL SIGNS: Blood pressure 109/56, pulse 102, respiratory rate 20. She is afebrile. CHEST: Decreased breath sounds. Bilateral rhonchi. CARDIAC: Normal S1 and S2. No gallops. ABDOMEN: No mass. LABORATORY DATA: Sodium 127. Her bicarb is 12, anion gap is 30, BUN and creatinine are 55 and 2.5, glucose 175. X-ray shows minimal bibasilar infiltrates and effusions. Her white count is 28,000 with a big left shift. Cultures are negative. IMPRESSION: Respiratory failure, shock, atrial fibrillation, severe acidosis, unclear, it is felt it could be due to ischemic bowel. Still not corrected with a bicarb drip for several days. PLAN: She is apparently not a surgical candidate. She is a DNR. Comfort care. We will follow. One-half hour of critical time. Job ID: [id number]
--- NOTE | 2019-06-10 08:46 | PRG ---
DATE OF SERVICE: 06/10/2019 SUBJECTIVE: This morning, the patient is responding to painful stimuli. OBJECTIVE: VITAL SIGNS: Pulse 88, saturations 100%, blood pressure 90/57, temperature 97. CHEST: Bilateral rhonchi and crackles. CARDIAC: Sinus tach. ABDOMEN: Soft. LABORATORY DATA: Sodium is 130. BUN and creatinine are 53 and 2.0. Calcium is low. Albumin is low at 1.3. White count 15,000. Hemoglobin and hematocrit are 7 and 22, platelet count is very low at 47,000. ASSESSMENT AND PLAN: 1. Multiorgan failure. 2. Thrombocytopenia. 3. Ongoing persistent metabolic acidosis with a bicarb of 15, anion gap of 31. X-ray showing bilateral pulmonary infiltrates; pneumonia probably, aspiration. 4. Atrial fibrillation. Antibiotics on board, adjust for the renal failure. So far, I do not see any cultures that are positive. The patient is a DNR. Family is still doing comfort care. We discussed if they arrive. One-half hour of critical time. Job ID: [id number]
--- NOTE | 2019-06-10 09:21 | RAD ---
PORTABLE AP CHEST: Date: 06/10/19 HISTORY: Pneumonia. COMPARISON: 06/09/19. FINDINGS: Endotracheal tube, nasogastric tube, and left internal jugular vein central venous catheter remain in place and unchanged in position. There has been interval increase in parenchymal opacities at the ri ght lung base and involving the right upper lung zone and to a lesser extent at the left lung base. C ardiac silhouette and pulmonary vasculature are within normal limits. Vascular calcifications are aga in seen involving the thoracic aorta, as well as in the region of the subclavian arteries bilaterally . Prominent right glenohumeral osteoarthropathy is present with mild deformity of proximal right verna minal partially imaged. No other interval change. IMPRESSION: Interval increase in parenchymal opacities at the right lung base and right upper lung zone and left lung base, which may be related to worsening pneumonia. Continued follow-up to complete resolution is recommended. POS: REBECCA
[2019-06-10] MEDS: Folic Acid 1 MG TAB PER TUBE SCH ×2 (10:08→20:24)
[2019-06-10] MEDS: Pantoprazole 40 MG VIAL IVP SCH (10:08)
[2019-06-10] MEDS: NPH, Human Insulin Isophane 300 UNIT/3 ML VIAL SC SCH ×2 (10:09→20:24)
[2019-06-10] MEDS: Insulin Regular 300 UNITS/3 ML VIAL SC PRN (10:13)
--- NOTE | 2019-06-10 10:31 | PDOC.HOSPP ---
- Subjective Encounter Date: 06/10/19 Encounter Time: 13:00 Subjective: Patient minimally responsive, does grimace to pain. - Objective Vital Signs & Weight: Vital Signs (12 hours) Temp Pulse Resp BP Pulse Ox 06/10/19 09:54 99 20 100 06/10/19 09:53 93 06/10/19 06:58 91 18 100 06/10/19 06:00 20 06/10/19 04:00 97.5 F L 19 06/10/19 02:04 95 91/64 06/10/19 02:00 21 H 06/10/19 00:00 96.2 F L 22 H Weight Admit Weight 107 lb Weight 136 lb 10.986 oz Most Recent Monitor Data Heart Rate from ECG 91 NIBP 98/57 NIBP BP-Mean 70 Respiration from ECG 18 SpO2 100 I&O: 06/09/19 06/10/19 06/11/19 06:59 06:59 06:59 Intake Total 4037 4069.6 Output Total 551 295 Balance 3486 3774.6 Result Diagrams: 06/10/19 04:18 06/10/19 04:18 Additional Labs: Accuchecks 06/10/19 06/10/19 06/09/19 10:16 04:19 23:14 POC Glucose 150 H 114 H 98 06/09/19 06/09/19 06/09/19 19:23 17:20 14:57 POC Glucose 105 69 L 98 Hospitalist ROS - Review of Systems ROS unobtainable: due to endotracheal tube - Medication Medications: Active Medications Generic Name Dose Route Start Last Admin Trade Name Freq PRN Reason Stop Dose Admin Albuterol/Ipratropium 3 ml 06/06/19 10:30 06/10/19 09:54 Duoneb NEB 3 ml [id number] NATHANIEL Administration Calcium Carbonate 1,000 mg 06/09/19 14:00 06/10/19 05:31 Oscal-500 PER TUBE 1,000 mg Q8HR NATHANIEL Administration Dextrose/Water 25 gm 06/06/19 11:03 06/08/19 04:15 Dextrose 50% SLOW IVP 25 gm PRN PRN Administration Hypoglycemia Folic Acid 1 mg 06/07/19 09:00 06/10/19 10:08 Folvite PER TUBE 1 mg BID NATHANIEL Administration Norepinephrine Bitartrate 250 mls @ 0 mls/hr 06/06/19 07:30 06/09/19 14:48 Levophed IVPB 250 mls INF NATHANIEL Administration Protocol Titrate Amiodarone HCl 450 mg/ 259 mls @ 0 mls/hr 06/06/19 20:45 06/09/19 14:47 Miscellaneous Medication 1 IVPB 259 mls each/ Dextrose/Water INF NATHANIEL Administration Protocol As Directed Cefepime HCl 0.5 gm/ 100 mls @ 200 mls/hr 06/08/19 06:00 06/10/19 05:49 Miscellaneous Medication 1 IVPB 100 mls each/ Sodium Chloride 0600 NATHANIEL Administration Sodium Bicarbonate 140 meq/ 1,140 mls @ 125 mls/hr 06/08/19 16:15 06/10/19 05 :31 Dextrose/Water IV 1,140 mls .Q9H8M NATHANIEL Administration Insulin Human NPH 15 unit 06/06/19 21:00 06/10/19 10:09 Humulin N SC 15 unit BID NATHANIEL Administration Insulin Human Regular 0 units 06/06/19 11:03 06/10/19 10:13 Humulin R SC 2 unit .MODERATE SLIDING SC PRN Administration Moderate Correctional Scale Insulin Human Regular 0 units 06/06/19 11:03 06/09/19 04:33 Humulin R SC 2 unit .BEDTIME SLIDING SC PRN Administration Bedtime Correctional Scale Morphine Sulfate 2 mg 06/06/19 07:30 06/06/19 13:45 Morphine SLOW IVP 07/06/19 07:30 2 mg Q1H PRN Administration BREAKTHROUGH PAIN/Agitation Pantoprazole Sodium 40 mg 06/06/19 09:00 06/10/19 10:08 Protonix IVP 40 mg DAILY NATHANIEL Administration - Exam General Appearance: ill appearing Neck: supple, symmetric Heart: RRR Respiratory: CTAB, no wheezes Gastrointestinal: soft, non-tender, non-distended Extremities: no clubbing, no edema Extremities - other findings: cyanosis to multiple toes due to Levophed Psychiatric - other findings: minimally responsive Hosp A/P (1) Septic shock Code(s): A41.9 - SEPSIS, UNSPECIFIED ORGANISM; R65.21 - SEVERE SEPSIS WITH SEPTIC SHOCK Status: Acute Plan: requiring vasopressors (2) Acute metabolic encephalopathy Code(s): G93.41 - METABOLIC ENCEPHALOPATHY Status: Acute Plan: severe, unresponsive to pain (3) Metabolic acidosis Code(s): E87.2 - ACIDOSIS Status: Acute Plan: severe, worsening (4) Diabetes mellitus, insulin dependent (IDDM), controlled Code(s): E11.9 - TYPE 2 DIABETES MELLITUS WITHOUT COMPLICATIONS; Z79.4 - [employer] (CURRENT) USE OF INSULIN Status: Chronic (5) Protein-calorie malnutrition Code(s): E46 - UNSPECIFIED PROTEIN-CALORIE MALNUTRITION Status: Acute Qualifiers: Protein-calorie malnutrition severity: severe Qualified Code(s): E43 - Unspecified severe protein-calorie malnutrition - Plan continue antibiotics Consults: Palliative Care DNAR, patient with grave prognosis, family desires to continue care for now Pulmonology Consult: Meds - Medications MAR Reviewed: Yes Medications: Current Medications Acetaminophen (Tylenol) 650 mg AK Q4H PRN PRN Reason: Headache/Fever/Mild Pain (1-3) Acetaminophen (Tylenol Elixir) 650 mg PO Q6H PRN PRN Reason: Fever > 101 or Mild Pain Albuterol/Ipratropium (Duoneb) 3 ml NEB [id number] NATHANIEL Last Admin: 06/10/19 09:54 Dose: 3 ml Bisacodyl (Dulcolax) 10 mg AK DAILYPRN PRN PRN Reason: Constipation Calcium Carbonate (Tums) 1,000 mg PO Q4H PRN PRN Reason: Heartburn or Indigestion Calcium Carbonate (Oscal-500) 1,000 mg PER TUBE Q8HR NATHANIEL Last Admin: 06/10/19 05:31 Dose: 1,000 mg Dextrose/Water (Dextrose 50%) 25 gm SLOW IVP PRN PRN PRN Reason: Hypoglycemia Last Admin: 06/08/19 04:15 Dose: 25 gm Folic Acid (Folvite) 1 mg PER TUBE BID NATHANIEL Last Admin: 06/10/19 10:08 Dose: 1 mg Glucagon (Glucagon) 1 mg IM PRN PRN PRN Reason: Hypoglycemia Norepinephrine Bitartrate (Levophed) 250 mls @ 0 mls/hr IVPB INF NATHANIEL; Protocol Last Admin: 06/09/19 14:48 Dose: 250 mls Fentanyl Citrate 2,000 mcg/ (Sodium Chloride) 100 mls @ 0 mls/hr IV INF NATHANIEL; Protocol Stop: 07/06/19 07:30 Fentanyl Citrate (Fentanyl Bolus) 250 mls @ 0 mls/hr IVPB PRN PRN PRN Reason: Breakthrough pain/agitation Stop: 07/06/19 07:30 Dextrose/Water (D5w) 1,000 mls @ 0 mls/hr IV .Q0M PRN PRN Reason: Hypoglycemia Amiodarone HCl 450 mg/Miscellaneous Medication 1 each/ Dextrose/Water 259 mls @ 0 mls/hr IVPB INF NATHANIEL; Protocol Last Admin: 06/09/19 14:47 Dose: 259 mls Cefepime HCl 0.5 gm/Miscellaneous Medication 1 each/ Sodium Chloride 100 mls @ 200 mls/hr IVPB 0600 NATHANIEL Last Admin: 06/10/19 05:49 Dose: 100 mls Sodium Bicarbonate 140 meq/ (Dextrose/Water) 1,140 mls @ 125 mls/hr IV .Q9H8M [facility] Last Admin: 06/10/19 05:31 Dose: 1,140 mls Insulin Human NPH (Humulin N) 15 unit SC BID [facility] Last Admin: 06/10/19 10:09 Dose: 15 unit Insulin Human Regular (Humulin R) 0 units SC .MODERATE SLIDING SC PRN PRN Reason: Moderate Correctional Scale Last Admin: 06/10/19 10:13 Dose: 2 unit Insulin Human Regular (Humulin R) 0 units SC .BEDTIME SLIDING SC PRN PRN Reason: Bedtime Correctional Scale Last Admin: 06/09/19 04:33 Dose: 2 unit Lorazepam (Ativan) 2 mg SLOW IVP Q1H PRN PRN Reason: Breakthrough agitation Stop: 07/06/19 07:30 Mineral Oil/White Petrolatum (Systane Nighttime Eye Ointment) 0 gm EA EYE PRN PRN PRN Reason: Dry Eyes Miscellaneous Medication (Pharmacy To Dose) 1 each IVPB PRN PRN PRN Reason: Pharmacy to dose Miscellaneous Medication (Pharmacy To Dose) 1 each IVPB PRN PRN PRN Reason: Pharmacy to dose Miscellaneous Medication (Ventilator Sedation Protocol) 1 each FS PRN PRN PRN Reason: COMMUNICATION Morphine Sulfate (Morphine) 2 mg SLOW IVP Q1H PRN PRN Reason: BREAKTHROUGH PAIN/Agitation Stop: 07/06/19 07:30 Last Admin: 06/06/19 13:45 Dose: 2 mg Discontinue Previous Narcotic Pain Medications And Benzodiazepines 1 each FS .ONE NATHANIEL Stop: 07/06/19 07:30 Pantoprazole Sodium (Protonix) 40 mg IVP DAILY NATHANIEL Last Admin: 06/10/19 10:08 Dose: 40 mg Propofol (Diprivan) 1,000 mg IV INF PRN; Protocol PRN Reason: TO ACHIEVE GOAL RASS Stop: 07/06/19 07:30 Propofol (Diprivan Bolus) 20 mg IV Q5MIN PRN PRN Reason: BREAKTHROUGH AGITATION Stop: 07/06/19 07:30 Sodium Chloride (Flush - Normal Saline) 10 ml IVF PRN PRN PRN Reason: Saline Flush Sodium Chloride (Flush - Normal Saline) 10 ml IVF PRN PRN PRN Reason: Saline Flush - Allergies Allergies/Adverse Reactions: Allergies Allergy/AdvReac Type Severity Reaction Status Date / Time No Known Drug Allergies Allergy Verified 06/06/19 12:41
[2019-06-10] MEDS: Amiodarone 450 MG, Admixture Fee 1 EACH in Dextrose 5% in Water 250 ML IVPB SCH (12:24)
[2019-06-10 14:23] VITALS: BMI 22.0
--- NOTE | 2019-06-10 17:03 | PDOC.PALPN ---
Palliative Progress Note - Subjective Mechanical ventilation, grimaces. Family at bedside. - Objective Vital Signs: Vital Signs - Most Recent Temp Pulse Resp BP Pulse Ox 97.9 F 86 18 91/64 100 06/10/19 16:00 06/10/19 14:05 06/10/19 16:00 06/10/19 02:04 06/10/19 14:04 - Physical Exam Constitutional: encephalitic, ill appearing, mild distress HEENT: EOMI, moist MMs Respiratory: diminished lung sound Deviation from normal: mechanical ventilation Cardiovascular: RRR, diminished peripheral pulses Deviation from normal: cyanotic toes, dusky Gastrointestinal: non-tender Genitourinary: grant catheter Musculoskeletal: edema present, muscle wasting Neurology: hemiplegia Skin: fragile, friable Deviation from normal: Multiple wounds/skin tears as documented - Assessment (1) Palliative care encounter Code(s): Z51.5 - ENCOUNTER FOR PALLIATIVE CARE Current Visit: Yes Status: Acute (2) On mechanically assisted ventilation Code(s): Z99.11 - DEPENDENCE ON RESPIRATOR [VENTILATOR] STATUS Current Visit: Yes Status: Acute (3) Septic shock Code(s): A41.9 - SEPSIS, UNSPECIFIED ORGANISM; R65.21 - SEVERE SEPSIS WITH SEPTIC SHOCK Current Visit: Yes Status: Acute (4) Protein-calorie malnutrition Code(s): E46 - UNSPECIFIED PROTEIN-CALORIE MALNUTRITION Current Visit: Yes Status: Acute Qualifiers: Protein-calorie malnutrition severity: severe Qualified Code(s): E43 - Unspecified severe protein-calorie malnutrition (5) Metabolic acidosis Code(s): E87.2 - ACIDOSIS Current Visit: Yes Status: Acute - Plan Plan: Visited iwth family at length. *Continue with DNAR *Considering hospice, however desire to have ET tube removed and then take patient back to the home setting with hospice. *Continued education in relation to disease processes and trajectory. *Discussed revisiting goals of care in 24-48 hours [60] minutes spent on this encounter with >50% of the time in counseling and coordination of care. - ROS Non Response: due to endotracheal tube, due to mental status
[2019-06-10 19:48] LABS: Glucose Accucheck Confirmation 33 mg/dl (83-110)
[2019-06-10] MEDS: Dextrose 50 % In Water 50 ML SYRINGE IV PRN (20:18)
[2019-06-11] MEDS: Amiodarone 450 MG, Admixture Fee 1 EACH in Dextrose 5% in Water 250 ML IVPB SCH (00:08)
[2019-06-11] MEDS: Dextrose 50 % In Water 50 ML SYRINGE IV PRN ×2 (00:32→04:19)
[2019-06-11 04:44] LABS: Hemoglobin 7.5 g/dL (12.0-16.0); Mean Corpuscular HGB CONC 34.8 g/dL (32.0-36.0); Mean Corpuscular Hemoglobin 33.7 pg (27.0-31.0); Mean Corpuscular Volume 96.8 fL (78.0-98.0); Mean Platelet Volume 11.9 fL (7.4-10.4); Platelet Count 25 thou/uL (130-400); RBC Distribution Width 13.8 % (11.5-14.5); Red Blood Cell (RBC) Count 2.24 mill/uL (4.20-5.40); White Blood Cell (WBC) Count 5.2 thou/uL (4.8-10.8)
[2019-06-11 04:55] LABS: Phosphorus 2.2 mg/dL (2.3-4.7)
[2019-06-11 04:58] LABS: Band 4 % (5-11); Lymphocytes 8 % (21-51); MDiff Complete? YES; Monocytes 2 % (0-10); Neutrophil 86 % (42-75); Platelet Morphology Comment Appears Decreased; Reflex for Review?? NO
[2019-06-11 05:00] LABS: ALT (SGPT) 28 U/L (8-55); AST (SGOT) 55 U/L (5-34); Albumin 1.3 g/dL (3.4-4.8); Alkaline Phosphatase 215 U/L (40-110); Anion Gap 26 mmol/L (10-20); BUN (Urea Nitrogen) 53 mg/dL (9.8-20.1); Bilirubin, Total 0.5 mg/dL (0.2-1.2); Calc. Creatinine Clearance 21 mL/min (70-130); Carbon Dioxide 22 mmol/L (23-31); Chloride 84 mmol/L (98-107); Estimated GFR-MDRD 23; Globulin 1.9 g/dL (2.4-3.5); Glucose 61 mg/dL (83-110); Protein, Total 3.2 g/dL (6.0-8.3); Sodium 129 mmol/L (136-145)
[2019-06-11] MEDS: Calcium Carbonate 500 MG TAB PER TUBE SCH ×2 (05:00→14:00)
[2019-06-11 05:06] LABS: Calcium 5.4 mg/dL (7.8-10.44); Magnesium 0.9 mg/dL (1.6-2.6); Potassium 2.6 mmol/L (3.5-5.1)
[2019-06-11] MEDS: Cefepime 0.5 GM, Admixture Fee 1 EACH in Sodium Chloride 0.9% 100 ML IVPB SCH (05:42)
[2019-06-11] MEDS ORDERED: Potassium Chloride 40 MEQ in Premix Bag 1 BAG IVPB SCH (06:30)
[2019-06-11] MEDS ORDERED: Calcium Gluc 4.6 MEQ/10 ML (100 MG/ML) SLOW IVP SCH (06:45)
[2019-06-11 06:46] LABS: Actual Bicarbonate (HCO3a) 18.7 mEq/L (22-28); Base Excess (BEa) -4.9 mEq/L (-2.0 to +3.0); CO2 Tension 28.2 mmHg (35.0-45.0); Calcium, Ionized 1.11 mmol/L (1.12-1.30); Hemoglobin (Hb) 6.9 g/dL (12.0-16.0); O2 Tension (PaO2) 90.7 mmHg (> 70.0); Potassium - ABG Lab 2.52 mmol/L (3.70-5.30); Puncture Site RRA; pH, Arterial 7.44 (7.35-7.45)
--- NOTE | 2019-06-11 08:56 | RAD ---
CHEST ONE VIEW: INDICATIONS: History of pneumonia. COMPARISON: 06/10/2019 FINDINGS: Bilateral pneumonia is stable. The patient remains intubated with gastric catheter placement, ET tube placement and left IJ central venous catheter. No pneumothorax is evident. Bilateral pleural effusio ns are stable. No acute osseous abnormality is evident. IMPRESSION: Stable pneumonia. POS: OFF
--- NOTE | 2019-06-11 09:00 | PDOC.HOSPP ---
- Subjective Encounter Date: 06/11/19 Encounter Time: 10:45 non-verbal Subjective: Patient with no improvement overnight, family discussing withdrawl of care. - Objective Vital Signs & Weight: Vital Signs (12 hours) Temp Pulse Resp BP Pulse Ox 06/11/19 07:46 80 109/60 06/11/19 06:00 20 06/11/19 04:00 97.6 F 06/11/19 02:36 88 21 H 105/48 L 98 06/11/19 00:00 96.2 F L 23 H 06/10/19 22:24 91 95/55 L 06/10/19 22:23 90 19 100 06/10/19 22:00 20 Weight Admit Weight 107 lb Weight 136 lb 10.986 oz Most Recent Monitor Data Heart Rate from ECG 80 NIBP 119/79 NIBP BP-Mean 92 Respiration from ECG 13 SpO2 96 I&O: 06/10/19 06/11/19 06/12/19 06:59 06:59 06:59 Intake Total 4069.6 3676.2 0 Output Total 295 320 0 Balance 3774.6 3356.2 0 Result Diagrams: 06/11/19 04:23 06/11/19 04:23 Additional Labs: Accuchecks 06/11/19 06/11/19 06/11/19 04:21 01:23 00:32 POC Glucose 67 L 90 66 L 06/10/19 06/10/19 06/10/19 21:06 19:49 10:16 POC Glucose 90 Less than 35 L* 150 H Hospitalist ROS - Review of Systems ROS unobtainable: due to endotracheal tube - Medication Medications: Active Medications Generic Name Dose Route Start Last Admin Trade Name Freq PRN Reason Stop Dose Admin Albuterol/Ipratropium 3 ml 06/06/19 10:30 06/11/19 07:46 Duoneb NEB 3 ml [id number] NATHANIEL Administration Calcium Carbonate 1,000 mg 06/09/19 14:00 06/11/19 05:00 Oscal-500 PER TUBE 1,000 mg Q8HR NATHANIEL Administration Dextrose/Water 25 ml 06/10/19 20:15 06/11/19 04:19 Dextrose 50%-Water Syringe IV 25 ml PRN PRN Administration Hypoglycemia Folic Acid 1 mg 06/07/19 09:00 06/10/19 20:24 Folvite PER TUBE 1 mg BID NATHANIEL Administration Glucagon 1 mg 06/06/19 11:03 06/10/19 23:40 Glucagon IM 1 mg PRN PRN Administration Hypoglycemia Norepinephrine Bitartrate 250 mls @ 0 mls/hr 06/06/19 07:30 06/09/19 14:48 Levophed IVPB 250 mls INF NATHANIEL Administration Protocol Titrate Amiodarone HCl 450 mg/ 259 mls @ 0 mls/hr 06/06/19 20:45 06/11/19 00:08 Miscellaneous Medication 1 IVPB 259 mls each/ Dextrose/Water INF NATHANIEL Administration Protocol As Directed Cefepime HCl 0.5 gm/ 100 mls @ 200 mls/hr 06/08/19 06:00 06/11/19 05:42 Miscellaneous Medication 1 IVPB 100 mls each/ Sodium Chloride 0600 NATHANIEL Administration Sodium Bicarbonate 100 meq/ 1,100 mls @ 100 mls/hr 06/10/19 20:15 06/11/19 05 :43 Dextrose/Water IV 1,100 mls .Q11H NATHANIEL Administration Potassium Chloride 40 meq/ 100 mls @ 25 mls/hr 06/11/19 06:30 06/11/19 06:31 Device IVPB 06/11/19 10:29 100 mls NOW NATHANIEL Administration Insulin Human NPH 15 unit 06/06/19 21:00 06/10/19 20:24 Humulin N SC Not Given BID NATHANIEL Insulin Human Regular 0 units 06/06/19 11:03 06/10/19 10:13 Humulin R SC 2 unit .MODERATE SLIDING SC PRN Administration Moderate Correctional Scale Insulin Human Regular 0 units 06/06/19 11:03 06/09/19 04:33 Humulin R SC 2 unit .BEDTIME SLIDING SC PRN Administration Bedtime Correctional Scale Morphine Sulfate 2 mg 06/06/19 07:30 06/06/19 13:45 Morphine SLOW IVP 07/06/19 07:30 2 mg Q1H PRN Administration BREAKTHROUGH PAIN/Agitation Pantoprazole Sodium 40 mg 06/06/19 09:00 06/10/19 10:08 Protonix IVP 40 mg DAILY NATHANIEL Administration - Exam General Appearance: ill appearing General - other findings: grimaces to stimulation Heart: RRR, no murmur, no gallops Respiratory: CTAB Gastrointestinal: soft Extremities - other findings: cyanosis to toes bilaterally Psychiatric - other findings: minimally responsive to stimulation Hosp A/P (1) Septic shock Code(s): A41.9 - SEPSIS, UNSPECIFIED ORGANISM; R65.21 - SEVERE SEPSIS WITH SEPTIC SHOCK Status: Acute (2) Acute metabolic encephalopathy Code(s): G93.41 - METABOLIC ENCEPHALOPATHY Status: Acute (3) Metabolic acidosis Code(s): E87.2 - ACIDOSIS Status: Acute (4) Diabetes mellitus, insulin dependent (IDDM), controlled Code(s): E11.9 - TYPE 2 DIABETES MELLITUS WITHOUT COMPLICATIONS; Z79.4 - 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 Status: Chronic (5) Protein-calorie malnutrition Code(s): E46 - UNSPECIFIED PROTEIN-CALORIE MALNUTRITION Status: Acute Qualifiers: Protein-calorie malnutrition severity: severe Qualified Code(s): E43 - Unspecified severe protein-calorie malnutrition (6) Thrombocytopenia Code(s): D69.6 - THROMBOCYTOPENIA, UNSPECIFIED Status: Acute Plan: severe, likely due to infection (7) Hypocalcemia Code(s): E83.51 - HYPOCALCEMIA Status: Acute Plan: replacing (8) Hypomagnesemia Code(s): E83.42 - HYPOMAGNESEMIA Status: Acute Plan: replacing (9) Hypokalemia Code(s): E87.6 - HYPOKALEMIA Status: Acute Plan: replacing - Plan continue antibiotics, respiratory therapy DNAR, patient with grave prognosis, family to reassess for possible withdrawl of care
--- NOTE | 2019-06-11 09:09 | PRG ---
DATE OF SERVICE: 06/11/2019 SUBJECTIVE: This morning, the patient is still on the vent. Family has yet to decide about extubation and comfort care. OBJECTIVE: VITAL SIGNS: Pulse 83, blood pressure 117/57, sats 100%, respiratory rate 10. Encephalopathic, on the vent. She just opens her eyes. Her I's and O's for the last 24 hours have been ahead. Her maximum temperature is 97. CHEST: Bilateral rhonchi and crackles. CARDIAC: Normal S1 and S2. No gallops. ABDOMEN: Soft. LABORATORY DATA: Her platelet count has dropped significantly to 25,000, severe thrombocytopenia. Her white count is 5000, H and H 7 and 21. PO2 is 90, pCO2 of CPAP. Her sodium is 129, BUN and creatinine 59 and 2.0, and potassium 2.6. ASSESSMENT AND PLAN: 1. Ongoing metabolic acidosis. 2. Renal failure. 3. Pneumonia. 4. Severe deconditioning. 5. Anemia. 6. Thrombocytopenia. She is still on broad-spectrum antibiotics, adjusted for her renal failure. She is on amiodarone, IV fluids, supportive care. When family arrives, we will consider comfort care. One-half hour of critical care time. Job ID: [id number]
[2019-06-11] MEDS: Folic Acid 1 MG TAB PER TUBE SCH (09:11)
[2019-06-11] MEDS: NPH, Human Insulin Isophane 300 UNIT/3 ML VIAL SC SCH (09:12)
[2019-06-11] MEDS: Pantoprazole 40 MG VIAL IVP SCH (09:16)
[2019-06-11] MEDS ORDERED: Magnesium 2 GM/50 ML 2 GM in Premix Bag 1 BAG IVPB SCH (10:00)
[2019-06-11 10:49] VITALS: BP 103/57
[2019-06-11] MEDS ORDERED: DC Sedation Protocol FS ONE (13:02)
--- NOTE | 2019-06-11 13:42 | PRG ---
DATE OF SERVICE: 06/11/2019 There are several family members now present at the bedside. I had a lengthy discussion with the family members. She is a DNR, did have that in chart in the past, wanted comfort care. There were unwilling to extubate until my visit with them. She has not got any better and now willing to extubate for comfort care. We will extubate her. Nurse will once again confirm with the family that we are going to do stop all medication. If she survives several hours, she may be transferred to unmonitored bed. Job ID: [id number] MTDD
--- NOTE | 2019-06-11 13:52 | PDOC.PALPN ---
Palliative Progress Note - Subjective Patient extubated by Dr Moya. Family at bedside, patient non responsive, shallow respirations. - Objective Vital Signs: Vital Signs - Most Recent Temp Pulse Resp BP Pulse Ox 97.6 F 74 20 103/57 L 98 06/11/19 04:00 06/11/19 13:05 06/11/19 06:00 06/11/19 10:48 06/11/19 02:36 - Physical Exam Constitutional: NAD, encephalitic HEENT: moist MMs Respiratory: accessory muscle use, diminished lung sound Cardiovascular: RRR Deviation from normal: bradycardic Gastrointestinal: incontinent Genitourinary: grant catheter Musculoskeletal: diffuse muscle atrophy, muscle wasting Skin: fragile, friable Deviation from normal: multiple wounds as per notes Deviation from normal: encephalitic - Assessment (1) Palliative care encounter Code(s): Z51.5 - ENCOUNTER FOR PALLIATIVE CARE Current Visit: Yes Status: Acute (2) On mechanically assisted ventilation Code(s): Z99.11 - DEPENDENCE ON RESPIRATOR [VENTILATOR] STATUS Current Visit: Yes Status: Acute (3) Septic shock Code(s): A41.9 - SEPSIS, UNSPECIFIED ORGANISM; R65.21 - SEVERE SEPSIS WITH SEPTIC SHOCK Current Visit: Yes Status: Acute (4) Protein-calorie malnutrition Code(s): E46 - UNSPECIFIED PROTEIN-CALORIE MALNUTRITION Current Visit: Yes Status: Acute Qualifiers: Protein-calorie malnutrition severity: severe Qualified Code(s): E43 - Unspecified severe protein-calorie malnutrition (5) Metabolic acidosis Code(s): E87.2 - ACIDOSIS Current Visit: Yes Status: Acute - Plan Plan: Patient extubated, non responsive. Family greiving appropriately. Support provided and Theraputic listening. Comfort medications. May consider hospice eval if needed. [40] minutes spent on this encounter with >50% of the time in counseling and coordination of care. - ROS Non Response: due to mental status
[2019-06-11 15:59] VITALS: TEMP 97.9
--- NOTE | 2019-06-12 07:14 | DIS ---
DATE OF ADMISSION: 06/06/2019 DATE OF DISCHARGE: 06/11/2019 DATE OF : 06/11/2019. TIME OF : 1356. REASON FOR ADMISSION: Sepsis. CAUSE OF : Septic shock secondary to urinary tract infection with strep bacteremia. CONTRIBUTING CAUSE TO : She was a previous tobacco user, which may have contributed. OTHER ASSOCIATED MEDICAL PROBLEMS: Diabetes mellitus, type 2. SUMMARY OF HOSPITAL COURSE: This is a 78-year-old female, assisted resident, who was brought in after she was found to be hypothermic and hypoglycemic. She was found to have leukocytosis, evidence of urinary tract infection with severe sepsis. The patient was treated with IV antibiotics with pressors. She had to be intubated and was artificially ventilated. The patient did not improve during hospitalization. Eventually, the family and consultation with Palliative Care and with Pulmonology decided to withdraw care. She was removed from the ventilator with minimal respiratory effort and then within the next hour. Her body is being discharged to home. No autopsy planned. Job ID: [id number] MTDD
== END 2019-06-11 13:56 | disposition expired | DRG 870 ==
LOC: ERS 03:42 → CCU 07:44
PROVIDERS: ADMIT Internal Medicine; ATTEND Internal Medicine
PROC: 5A1955Z Respiratory Ventilation, Greater than 96 Consecutive Hours (ICD-10-PCS; principal; 2019-06-06)
PROC: 0BH17EZ Insertion of Endotracheal Airway into Trachea, Via Natural or Artificial Opening (ICD-10-PCS; 2019-06-06)
PROC: 3E033XZ Introduction of Vasopressor into Peripheral Vein, Percutaneous Approach (ICD-10-PCS; 2019-06-06)
DX: A40.9 Streptococcal sepsis, unspecified (principal); L89.154 Pressure ulcer of sacral region, stage 4; L89.894 Pressure ulcer of other site, stage 4; R65.21 Severe sepsis with septic shock; R40.2122 Coma scale, eyes open, to pain, at arrival to emergency department; R40.2222 Coma scale, best verbal response, incomprehensible words, at arrival to emergency department; E43 Unspecified severe protein-calorie malnutrition; J96.00 Acute respiratory failure, unspecified whether with hypoxia or hypercapnia; G92 Toxic encephalopathy; J18.9 Pneumonia, unspecified organism; E87.2 Acidosis; N39.0 Urinary tract infection, site not specified; N17.9 Acute kidney failure, unspecified; E87.1 Hypo-osmolality and hyponatremia; Z66 Do not resuscitate; D69.6 Thrombocytopenia, unspecified; R40.2332 Coma scale, best motor response, abnormal flexion, at arrival to emergency department; E78.5 Hyperlipidemia, unspecified; I10 Essential (primary) hypertension; M19.91 Primary osteoarthritis, unspecified site; Z87.891 Personal history of nicotine dependence; E11.649 Type 2 diabetes mellitus with hypoglycemia without coma; Z79.82 Long term (current) use of aspirin; Z51.5 Encounter for palliative care; I48.91 Unspecified atrial fibrillation; D53.9 Nutritional anemia, unspecified
CPT/HCPCS: 31500; 36415; 36416; 36430; 36556; 51702; 71045; 74176; 80053; 80202; 82533; 82607; 82746; 82805; 83605; 83735; 84100; 84443; 85025; 85046; 85060; 86850; 86900; 86901; 94002; 94003; 94640; 96365; 96367; 99292; C9113; J0282; J0610; J0692; J1610; J1815; J2270; J3370; J3475; J3480; J3490; J7042; J7050; J7070; J7620; P9016